=== PATIENT | male | born 1950 | race Caucasian/White ===

== ENCOUNTER 2018-10-21 20:57 | Inpatient (IN) | payer OTHER ==
[2018-10-21 21:29] LABS: PLATELET COUNT 291 10^3/uL (150-400)
[2018-10-21] MEDS ORDERED: NS 1,000 ML IV ONE (21:44)
[2018-10-21] MEDS ORDERED: LIDOCAINE 2% JELLY 20 ML (UROJECT) ONE (21:48)
[2018-10-21] MEDS ORDERED: BENZOCAINE UNIT DOSE SPRAY HURRICAINE MM ONE (22:17)
[2018-10-21] MEDS ORDERED: CEPACOL LOZENGE PO PRN (22:33)
--- NOTE | 2018-10-21 23:05 | GHP ---
[f rep st] PREOP HISTORY AND PHYSICAL DATE OF ADMISSION: 10/21/2018 REASON FOR EVALUATION: Postoperative abdominal pain. HISTORY OF PRESENT ILLNESS: 68-year-old male status post an uncomplicated laparoscopic ventral herniorrhaphy on October 14. He presents to the emergency room this evening with a multiple-day history of progressive abdominal distention with nausea, anorexia, diminished flatus with his last bowel movement being 2 days prior. No fevers or chills. Pain had been fairly controlled. One episode of emesis prior to ED arrival this evening. No prior history of similar complaints. PAST MEDICAL HISTORY: None. PAST SURGICAL HISTORY: Hemorrhoidectomy, bilateral inguinal hernia repair, vasectomy, ankle fracture ORIF with plate placement. HOME MEDICATIONS: Supplemental vitamins. ALLERGIES: No known drug allergies. SOCIAL HISTORY: No alcohol, no tobacco. PHYSICAL EXAM: VITAL SIGNS: Temperature 37.2, blood pressure 136/77, heart rate 69, respirations 20. GENERAL: The patient is alert, appropriate, comfortable. HEENT: Anicteric. NECK: No cervical lymphadenopathy. HEART: Regular. LUNGS: Clear. ABDOMEN: Markedly distended, soft. Appropriate incisional tenderness. No rebound. No guarding. No fluid wave. EXTREMITIES: Without edema. NEUROLOGIC: Alert and appropriate. SKIN: Without rashes. LABORATORY DATA: White count 4, hemoglobin 15, platelets 290. Electrolytes pending. Two-view KUB with markedly dilated small bowel loops with minimal colonic gas and marked gastric distention with air-fluid level. IMPRESSION: Postoperative ileus versus small-bowel obstruction. PLAN: Nasogastric tube placement was performed (1500cc gastrobilious fluid immediately on placement). Pending clinical course, consideration for Gastrografin small bowel follow-through versus a laparoscopic exploration may be entertained should conservative measures fail. Findings and recommendations were discussed with the patient. All questions were entertained. /[id number]/MODL MTDD
[2018-10-21] MEDS: D5W 1/2 NS W/ 20 KCl/L 1,000 ML IV SCH (23:32)
[2018-10-22] MEDS: KETOROLAC 15 MG/1 ML SDV IVP PRN ×2 (02:57→10:07)
--- NOTE | 2018-10-22 07:52 | PDMN ---
Medical Necessity Medical necessity: Pt meets IP criteria as of 10/21/2018 per and MCG M-210 ( Intestinal obstruction); est los > 2 mn for ongoing tx and management of SBO vs ileus s/p laparascopic ventral herniorrhaphy 1 week ago. Pt experiencing nausea , vomiting, abdominal pain, decreased flatus, and constipation; requiring NG tube and further workup.
[2018-10-22] MEDS: D5W 1/2 NS W/ 20 KCl/L 1,000 ML IV SCH ×2 (07:54→17:57)
--- NOTE | 2018-10-22 08:21 | SOAPPROG ---
SOAP Progress Note Assessment/Plan: Assessment:feeling better. one small flatus. less pain. no further nausea. avss. comfortable. abd less distended, nontender. NG gastric. KUB diffuse SB dilation. probable ileus rather than PSBO. cont NG/supportive care for today. Plan: 10/22/18 08:16 Objective: Vital Signs Temp Pulse Resp BP Pulse Ox 36.8 C 62 16 117/60 91 L 10/22/18 07:57 10/22/18 07:57 10/22/18 07:57 10/22/18 07:57 10/22/18 07:57 10/21/18 10/22/18 10/23/18 05:59 05:59 05:59 Intake Total 1000 679 Output Total 3850 150 Balance -2850 529 ICD10 Worksheet Patient Problems: Problems Problem Status Onset Ileus following gastrointestinal surgery Acute - ICD10 Problem Qualifiers (1) Ileus following gastrointestinal surgery
--- NOTE | 2018-10-22 10:02 | ASMTCMCOM ---
CM Note CM Note Notes: Chart reviewed for discharge planning purposes. 68 year old male admitted post ventral hernia repair with sbo vs ileus after laparoscopic surgery. No significant health history in chart. CM to follow for needs. Plan::Likely to discharge independently. Date Signed: 10/22/2018 10:01 AM Electronically Signed By:Iris Keith RN
[2018-10-22] MEDS: LORazepam 2 MG/ML INJ IVP PRN (21:57)
[2018-10-23] MEDS: D5W 1/2 NS W/ 20 KCl/L 1,000 ML IV SCH ×2 (04:09→16:00)
--- NOTE | 2018-10-23 12:32 | SOAPPROG ---
SOAP Progress Note Assessment/Plan: Assessment/Plan: Ileus post ventral hernia repir Admitted with afl on axr No leucocytosis NGT in place axr improved gas patter +flatus and small BM Abd soft less distended Inc c/d Improving picture small bowel series in am if needed. cont supportive care encourage ambulation/clears 10/23/18 12:30 Objective: Vital Signs Temp Pulse Resp BP Pulse Ox 36.6 C 73 14 130/68 H 94 10/23/18 11:07 10/23/18 11:07 10/23/18 11:07 10/23/18 11:07 10/23/18 11:07 10/22/18 10/23/18 10/24/18 05:59 05:59 05:59 Intake Total 9269 Output Total 2350 1600 900 Balance -2350 1329 -900 ICD10 Worksheet Patient Problems: Problems Problem Status Onset Ileus following gastrointestinal surgery Acute
[2018-10-23] MEDS: KETOROLAC 15 MG/1 ML SDV IVP PRN (18:52)
[2018-10-24] MEDS: D5W 1/2 NS W/ 20 KCl/L 1,000 ML IV SCH ×2 (02:01→19:44)
[2018-10-24] MEDS: KETOROLAC 15 MG/1 ML SDV IVP PRN ×2 (02:02→11:11)
--- NOTE | 2018-10-24 10:11 | SOAPPROG ---
SOAP Progress Note Assessment/Plan: Assessment/Plan: Ileus post ventral hernia repir Admitted with afl on axr No leucocytosis NGT in place axr improved gas patter +flatus and small BM More nauseated this morning Abd soft less distended Inc c/d More enteric fluid in NG aspirate small bowel series cont supportive care encourage ambulation/clears 10/23/18 12:30 10/24/18 10:10 Objective: Vital Signs Temp Pulse Resp BP Pulse Ox 36.9 C 52 L 16 103/44 L 93 10/24/18 07:40 10/24/18 07:40 10/24/18 07:40 10/24/18 07:40 10/24/18 07:40 10/23/18 10/24/18 10/25/18 05:59 05:59 05:59 Intake Total 2929 936 Output Total 1600 2100 Balance 1329 -1164 ICD10 Worksheet Patient Problems: Problems Problem Status Onset Ileus following gastrointestinal surgery Acute
[2018-10-24] MEDS: ONDANSETRON 4 MG/2 ML VIAL IVP PRN (15:45)
[2018-10-25] MEDS: KETOROLAC 15 MG/1 ML SDV IVP PRN ×4 (00:29→21:43)
--- NOTE | 2018-10-25 09:48 | SOAPPROG ---
SOAP Progress Note Assessment/Plan: Assessment/Plan: Ileus vs pSBO post ventral hernia repir Admitted with afl on axr No leucocytosis NGT in place axr improved gas patter +flatus and small BM More nauseated this morning Abd soft less distended Inc c/d More enteric fluid in NG aspirate small bowel series no contrast in colon after 5 hr recommend diag laparoscopy/adhesiolysis risks, benefits and alternatives outlined with questions answered npo 10/23/18 12:30 10/24/18 10:10 10/25/18 09:46 Objective: Vital Signs Temp Pulse Resp BP Pulse Ox 36.5 C 60 16 126/66 H 93 10/25/18 07:23 10/25/18 07:23 10/25/18 07:23 10/25/18 07:23 10/25/18 07:23 10/24/18 10/25/18 10/26/18 05:59 05:59 05:59 Intake Total 936 1517 Output Total 7508 8065 Htrtykk -2180 -4137 ICD10 Worksheet Patient Problems: Problems Problem Status Onset Ileus following gastrointestinal surgery Acute
[2018-10-25] MEDS ORDERED: LR 1,000 ML IV ONE (11:46)
--- NOTE | 2018-10-25 11:46 | ASMTCMCOM ---
CM Note CM Note Notes: Pt reports he anticipates no CM d/c needs. Pt will have transportation at d/c. Pt declines [employer] and [employer]. Anticipate pt will d/c when medically stable, no CM d/c needs identified. CM available for changes/needs. D/c plan: Independent Date Signed: 10/25/2018 11:45 AM Electronically Signed By:AUGUSTA Quiroz
[2018-10-25] MEDS ORDERED: LIDOCAINE 1% 300 MG/30 ML SDV ONE (11:48)
[2018-10-25] MEDS ORDERED: BUPIVACAINE 0.5% 30 ML SDV ONE (11:48)
--- NOTE | 2018-10-25 11:59 | PDANEPAE ---
ANE Past Medical History - Pulmonary History Hx Oxygen in Use at Home: No Hx Sleep Apnea: No Sleep Apnea Screening Result - Last Documented: Positive - Endocrine History Hx Diabetes: No ANE Review of Systems Review of Systems: ANE Patient History - Allergies Allergies/Adverse Reactions: No Known Allergies Allergy (Unverified 10/21/18 21:11) - Home Medications Home Medications: NK [No Known Home Meds] 10/21/18 [Last Taken Unknown] - NPO status NPO Since - Liquids (Date): 10/20/18 NPO Since - Solids (Date): 10/20/18 - Smoking Hx Smoking Status: Former smoker ANE Labs/Vital Signs - Labs Result Diagrams: 10/21/18 21:06 10/25/18 10:19 - Vital Signs Blood Pressure: 114/64 Heart Rate: 54 Respiratory Rate: 18 O2 Sat (%): 93 Height: 167.64 cm Weight: 66.224 kg ANE Physical Exam - Airway Mallampati Score: Class 2 - ASA Status ASA Status: II ANE Anesthesia Plan Anesthesia Plan: general endotracheal anesthesia
[2018-10-25] MEDS ORDERED: MIDAZOLAM 2 MG/2 ML VIAL ONE (12:04)
[2018-10-25] MEDS ORDERED: fentaNYL 100 MCG/2 ML INJ ONE ×3 (12:04→14:50)
[2018-10-25] MEDS ORDERED: PROPOFOL 200 MG/20 ML VIAL ONE (12:05)
[2018-10-25] MEDS ORDERED: ONDANSETRON 4 MG/2 ML VIAL ONE (12:12)
[2018-10-25] MEDS ORDERED: ROCURONIUM 50 MG/5 ML VIAL ONE (12:12)
[2018-10-25] MEDS ORDERED: ACETAMINOPHEN 500 MG TAB PO PRN (13:53)
[2018-10-25] MEDS ORDERED: LR 500 ML IV PRN (13:53)
[2018-10-25] MEDS ORDERED: NALOXONE HCL 0.4 MG/ML INJ IVP PRN (13:53)
--- NOTE | 2018-10-25 13:54 | POSTANESTH ---
Post Anesthetic Evaluation Cardiovascular Status: Normal, Stable Respiratory Status: Normal, Stable Level of Consciousness/Mental Status: Can Participate in Eval Pain Control: Adequate, Prn Tx Ordered Nausea/Vomiting Control: Adequate, Prn Tx Ordered Complications Possibly Related to Anesthesia: None Noted
[2018-10-25] MEDS ORDERED: KETOROLAC 15 MG/1 ML SDV ONE (14:11)
[2018-10-25] MEDS: fentaNYL 100 MCG/2 ML INJ IVP PRN ×3 (14:13→14:51)
--- NOTE | 2018-10-25 14:16 | POSTOPPROG ---
Post Op Note Date of Operation: 10/25/18 Surgeon: Morris Castrejon Partition Assembly Machine Operator: Bryon Smyth Anesthesiologist: Candie Anesthesia: GET(General Endotracheal) Pre-op Diagnosis: pSBO Post-op Diagnosis: same Procedure: Laparoscopic adhesiolysis, enterectomy Findings: stricture inflammed distal small bowel Inf/Abcess present in the surg proc area at time of surgery?: No EBL: Minimal Specimen(s): terminal ileum to path
[2018-10-25] MEDS: D5W 1/2 NS W/ 20 KCl/L 1,000 ML IV SCH (21:52)
[2018-10-26] MEDS: KETOROLAC 15 MG/1 ML SDV IVP PRN ×2 (03:44→14:38)
[2018-10-26] MEDS: D5W 1/2 NS W/ 20 KCl/L 1,000 ML IV SCH ×2 (08:06→17:47)
--- NOTE | 2018-10-26 16:59 | SOAPPROG ---
SOAP Progress Note Assessment/Plan: Assessment/Plan: POD#1 s/p lap adhesiolysis and enterectomy for distal sb inflammation and stenosis Less nauseated this morning Min NGT output Abd soft less distended Inc c/d Await return of bowel function path pending ngt clamped Cont IVF reassess in am d/c ng and adv diet when clinically appropriate 10/23/18 12:30 10/24/18 10:10 10/25/18 09:46 10/26/18 16:58 Objective: Vital Signs Temp Pulse Resp BP Pulse Ox 36.9 C 61 16 124/64 H 94 10/26/18 16:00 10/26/18 16:00 10/26/18 16:00 10/26/18 16:00 10/26/18 16:00 Laboratory Results 10/25/18 10:19 10/25/18 10/26/18 10/27/18 05:59 05:59 05:59 Intake Total 1517 750 Output Total 1227 1044 Balance -8062 -202 ICD10 Worksheet Patient Problems: Problems Problem Status Onset Ileus following gastrointestinal surgery Acute
[2018-10-27] MEDS: LORazepam 2 MG/ML INJ IVP PRN (05:54)
--- NOTE | 2018-10-27 13:38 | SOAPPROG ---
SOAP Progress Note Assessment/Plan: Assessment/Plan: POD#2 s/p lap adhesiolysis and enterectomy for distal sb inflammation and stenosis Not nauseated this morning NGT clamped overnight Abd soft less distended Inc c/d AXR shows contrast in distal colon Await return of bowel function path inflammation of smallbowel no crohn's/malignancy ngt removed Cont IVF reassess in am adv diet when clinically appropriate 10/23/18 12:30 10/24/18 10:10 10/25/18 09:46 10/26/18 16:58 10/27/18 13:36 Objective: Vital Signs Temp Pulse Resp BP Pulse Ox 36.8 C 61 16 121/73 H 95 10/27/18 11:45 10/27/18 11:45 10/27/18 11:45 10/27/18 11:45 10/27/18 11:45 Laboratory Results 10/25/18 10:19 10/26/18 10/27/18 10/28/18 05:59 05:59 05:59 Intake Total 750 1100 Output Total 1700 225 Balance -950 875 ICD10 Worksheet Patient Problems: Problems Problem Status Onset Ileus following gastrointestinal surgery Acute
[2018-10-27] MEDS: D5W 1/2 NS W/ 20 KCl/L 1,000 ML IV SCH ×2 (14:53→23:52)
--- NOTE | 2018-10-27 22:08 | SOAPPROG ---
SOAP Progress Note Assessment/Plan: Assessment: doing well. min po - min appetite. no nausea. no pain. avss. comfortable. path reviewed. cont supportive care/IVF until better po. all questions answered. Plan: 10/22/18 08:16 10/27/18 22:07 Objective: Vital Signs Temp Pulse Resp BP Pulse Ox 36.7 C 62 16 135/72 H 94 10/27/18 19:12 10/27/18 19:12 10/27/18 19:12 10/27/18 19:12 10/27/18 19:12 Laboratory Results 10/25/18 10:19 10/26/18 10/27/18 10/28/18 05:59 05:59 05:59 Intake Total 750 1100 2200 Output Total 1700 225 Balance -856 953 9249 ICD10 Worksheet Patient Problems: Problems Problem Status Onset Ileus following gastrointestinal surgery Acute - ICD10 Problem Qualifiers (1) Ileus following gastrointestinal surgery
[2018-10-28] MEDS: DICYCLOMINE 10 MG CAP PO SCH ×3 (10:50→22:10)
--- NOTE | 2018-10-28 14:19 | SOAPPROG ---
SOAP Progress Note Assessment/Plan: Assessment/Plan: POD#3 s/p lap adhesiolysis and enterectomy for distal sb inflammation and stenosis Not nauseated this morning NGT clamped overnight Abd softly distended Inc c/d AXR shows contrast in distal colon Await return of bowel function bentyl for spasm path inflammation of small bowel no crohn's/malignancy ngt removed Cont IVF reassess in am adv diet when clinically appropriate 10/23/18 12:30 10/24/18 10:10 10/25/18 09:46 10/26/18 16:58 10/27/18 13:36 10/28/18 14:17 Objective: Vital Signs Temp Pulse Resp BP Pulse Ox 36.8 C 56 L 16 104/60 95 10/28/18 11:35 10/28/18 11:35 10/28/18 11:35 10/28/18 11:35 10/28/18 11:35 Laboratory Results 10/25/18 10:19 10/27/18 10/28/18 10/29/18 05:59 05:59 05:59 Intake Total 1100 2200 Output Total 225 Balance 875 2200 ICD10 Worksheet Patient Problems: Problems Problem Status Onset Ileus following gastrointestinal surgery Acute
--- NOTE | 2018-10-28 15:58 | ASMTCMCOM ---
CM Note CM Note Notes: Spoke w/RN, pt continues to improve. Plan remains the same, will dc independent when medically stable. Pt declined [employer] and [employer]. CM available for changes. DC Plan: Independent Date Signed: 10/28/2018 03:57 PM Electronically Signed By:Bhumika Whitmore RN
[2018-10-29] MEDS: ONDANSETRON 4 MG/2 ML VIAL IVP PRN (05:07)
[2018-10-29] MEDS: DICYCLOMINE 10 MG CAP PO SCH ×4 (05:07→20:24)
--- NOTE | 2018-10-29 09:43 | SOAPPROG ---
SOAP Progress Note Assessment/Plan: Assessment/Plan: POD#4 s/p lap adhesiolysis and enterectomy for distal sb inflammation and stenosis Not nauseated this morning NGT out. multiple loose stool Abd soft non distended Inc c/d bentyl for spasm path inflammation of small bowel no crohn's/malignancy D/C IVF reg diet D/C home in 24-48 hr when clinically appropriate 10/23/18 12:30 10/24/18 10:10 10/25/18 09:46 10/26/18 16:58 10/27/18 13:36 10/28/18 14:17 10/29/18 09:42 10/29/18 09:43 Objective: Vital Signs Temp Pulse Resp BP Pulse Ox 36.5 C 53 L 14 87/46 L 92 10/29/18 07:52 10/29/18 07:52 10/29/18 07:52 10/29/18 07:52 10/29/18 07:52 Laboratory Results 10/25/18 10:19 10/28/18 10/29/18 10/30/18 05:59 05:59 05:59 Intake Total 2200 750 Balance 2200 750 ICD10 Worksheet Patient Problems: Problems Problem Status Onset Ileus following gastrointestinal surgery Acute
--- NOTE | 2018-10-29 13:23 | ASMTCMCOM ---
CM Note CM Note Notes: CM discussed with RN, plan continues to be discharge home independent, possibly tomorrow. CM to follow. D/C Plan: Independent. Date Signed: 10/29/2018 01:22 PM Electronically Signed By:Kamini Gaines
[2018-10-29] MEDS: IBUPROFEN 600 MG TAB PO PRN (14:38)
[2018-10-29] MEDS: HYDROCODONE/APAP 5/325 TAB PO PRN (16:51)
[2018-10-30] MEDS: DICYCLOMINE 10 MG CAP PO SCH ×5 (05:50→20:46)
--- NOTE | 2018-10-30 12:08 | SOAPPROG ---
SOAP Progress Note Assessment/Plan: Assessment/Plan: POD#5 s/p lap adhesiolysis and enterectomy for distal sb inflammation and stenosis Mildly nauseated this morning NGT out. multiple loose stool Minimal intake of clears Abd softly distended extremities no edema Inc c/d bentyl for spasm path inflammation of small bowel no crohn's/malignancy D/C IVF reg diet x-ray if no improvement in 24 hrs D/C home in 24-48 hr when clinically appropriate 10/23/18 12:30 10/24/18 10:10 10/25/18 09:46 10/26/18 16:58 10/27/18 13:36 10/28/18 14:17 10/29/18 09:42 10/29/18 09:43 10/30/18 12:07 Objective: Vital Signs Temp Pulse Resp BP Pulse Ox 36.4 C 68 16 123/66 H 93 10/30/18 11:33 10/30/18 11:33 10/30/18 11:33 10/30/18 11:33 10/30/18 11:33 Laboratory Results 10/25/18 10:19 10/29/18 10/30/18 10/31/18 05:59 05:59 05:59 Intake Total 750 760 Balance 750 760 ICD10 Worksheet Patient Problems: Problems Problem Status Onset Ileus following gastrointestinal surgery Acute
[2018-10-30] MEDS: ONDANSETRON 4 MG/2 ML VIAL IVP PRN (15:24)
[2018-10-30] MEDS ORDERED: PROMETHAZINE HCL 25 MG/ML INJ IVP PRN (20:00)
[2018-10-30] MEDS ORDERED: TEMAZEPAM 15 MG CAP PO ONE (20:01)
[2018-10-31] MEDS: DICYCLOMINE 10 MG CAP PO SCH ×4 (06:59→22:02)
[2018-10-31] MEDS ORDERED: METOCLOPRAMIDE 10 MG/2 ML VIAL IVP ONE (13:04)
--- NOTE | 2018-10-31 13:04 | SOAPPROG ---
SOAP Progress Note Assessment/Plan: Assessment/Plan: POD#6 s/p lap adhesiolysis and enterectomy for distal sb inflammation and stenosis Mildly nauseated yesterday Better this morning NGT out. multiple loose stool Minimal intake of clears Sleep aid with phenergan last evening slept for 11 hr Abd softly distended extremities no edema Inc c/d bentyl for spasm path inflammation of small bowel no crohn's/malignancy Reglan added (along with pheregan and restoril) reg diet x-ray if no improvement in 24 hrs D/C home in 24-48 hr when clinically appropriate 10/23/18 12:30 10/24/18 10:10 10/25/18 09:46 10/26/18 16:58 10/27/18 13:36 10/28/18 14:17 10/29/18 09:42 10/29/18 09:43 10/30/18 12:07 10/31/18 13:03 Objective: Vital Signs Temp Pulse Resp BP Pulse Ox 36.5 C 68 16 101/50 L 93 10/31/18 11:39 10/31/18 11:39 10/31/18 11:39 10/31/18 11:39 10/31/18 11:39 Laboratory Results 10/25/18 10:19 10/30/18 10/31/18 11/01/18 05:59 05:59 05:59 Intake Total 760 300 Balance 760 300 ICD10 Worksheet Patient Problems: Problems Problem Status Onset Ileus following gastrointestinal surgery Acute
[2018-10-31] MEDS ORDERED: TEMAZEPAM 15 MG CAP PO PRN (13:05)
[2018-10-31] MEDS ORDERED: METOCLOPRAMIDE 10 MG/2 ML VIAL IVP SCH (18:00)
[2018-10-31] MEDS ORDERED: METOCLOPRAMIDE 5 MG TAB PO PRN (19:13)
[2018-11-01] MEDS: HYDROCODONE/APAP 5/325 TAB PO PRN ×2 (00:47→22:25)
[2018-11-01] MEDS: DICYCLOMINE 10 MG CAP PO SCH ×4 (08:43→20:43)
--- NOTE | 2018-11-01 10:25 | ASMTCMCOM ---
CM Note CM Note Notes: Reviewed chart and spoke w/RN. Pt up and indepedent in room, anticipate will dc home independent when medically stable. CM available should his needs change. DC Plan: Independent Date Signed: 11/01/2018 10:24 AM Electronically Signed By:Bhumika Whitmore RN
--- NOTE | 2018-11-01 13:56 | SOAPPROG ---
SOAP Progress Note Assessment/Plan: Assessment/Plan: POD#7 s/p lap adhesiolysis and enterectomy for distal sb inflammation and stenosis Mildly nauseated yesterday Better this morning NGT out. multiple loose stool Minimal intake of clears Sleep aid with phenergan last evening slept for 11 hr Abd softly distended extremities no edema Inc min drainage bentyl for spasm path inflammation of small bowel no crohn's/malignancy Reglan added (along with pheregan and restoril) reg diet x-ray if no improvement in 24 hrs D/C home in 24-48 hr when clinically appropriate 10/23/18 12:30 10/24/18 10:10 10/25/18 09:46 10/26/18 16:58 10/27/18 13:36 10/28/18 14:17 10/29/18 09:42 10/29/18 09:43 10/30/18 12:07 10/31/18 13:03 11/01/18 13:55 11/01/18 13:55 Objective: Vital Signs Temp Pulse Resp BP Pulse Ox 36.6 C 61 16 102/61 94 11/01/18 08:00 11/01/18 08:00 11/01/18 08:00 11/01/18 08:00 11/01/18 08:00 Laboratory Results 10/25/18 10:19 10/31/18 11/01/18 11/02/18 05:59 05:59 05:59 Intake Total 300 120 Balance 300 120 ICD10 Worksheet Patient Problems: Problems Problem Status Onset Ileus following gastrointestinal surgery Acute
[2018-11-02] MEDS: DICYCLOMINE 10 MG CAP PO SCH ×4 (05:30→20:25)
--- NOTE | 2018-11-02 11:35 | SOAPPROG ---
SOAP Progress Note Assessment/Plan: Assessment/Plan: POD #7 s/p lap adhesiolysis and enterectomy for small bowel inflammation/ stricture. Overall doing much better. Only taking [place] prn pain. Umbilical incision redressed this morning. Anticipate discharge this evening or tomorrow if he continues to improve. Patient case discussed with Dr. Castrejon. 11/02/18 11:37 Subjective: Abdominal pain and cramping improved this am. Denies nausea. Tolerating regular diet and fluids well. Patient states he had formed BM this morning. Having flatus. Objective: Vital Signs Temp Pulse Resp BP Pulse Ox 36.4 C 67 14 90/47 L 95 11/02/18 07:57 11/02/18 07:57 11/02/18 07:57 11/02/18 07:57 11/02/18 07:57 Laboratory Results 10/25/18 10:19 11/01/18 11/02/18 11/03/18 05:59 05:59 05:59 Intake Total 120 120 Balance 120 120 Physical Exam: Gen: A&O x3, comfortable, lying in bed HEENT: anicteric Abdomen: soft, mild distention, minimal diffuse tenderness. No rebound or guarding. Incisions healing well, umbilical drainage Extremities: unremarkable ICD10 Worksheet Patient Problems: Problems Problem Status Onset Ileus following gastrointestinal surgery Acute
[2018-11-02] MEDS: HYDROCODONE/APAP 5/325 TAB PO PRN (22:12)
[2018-11-03] MEDS: IBUPROFEN 600 MG TAB PO PRN (03:12)
[2018-11-03] MEDS: DICYCLOMINE 10 MG CAP PO SCH ×2 (05:05→12:39)
[2018-11-03 09:37] VITALS: BP 109/61
--- NOTE | 2018-11-03 12:32 | ASMTLACE ---
LACE Length of stay for Answers: 7-13 days current admission Acuity / Level of Answers: Yes Care: Did the patient have an inpatient admission? Score: 8 Date Signed: 11/03/2018 12:29 PM Electronically Signed By:Bhumika Whitmore RN
--- NOTE | 2018-11-14 22:20 | GDS ---
[f rep st] DISCHARGE SUMMARY PRINCIPAL PROCEDURE: Diagnostic laparoscopy with small bowel obstruction. PRINCIPAL DIAGNOSTIC STUDIES: Include small bowel follow-through on 10/24/2018, demonstrating persis tent small bowel obstruction, and surgery was on 10/25/2018. The patient had a postoperative ileus w hich was treated conservatively. The patient advanced his diet and activity before being discharged. HISTORY/HOSPITAL COURSE: The patient had had surgery, a ventral hernia repair done 2 weeks prior to arrival. The patient came in with dilated loops of bowel and vomiting consistent with small bowel ob struction. He underwent an NG-tube decompression, which did not cause improvement of symptoms after 3 days. The patient had diagnostic study performed which demonstrated persistent ileus/small bowel o bstruction. He was taken to the operating room, underwent laparoscopy and enterectomy, and he was fo und to have normal small bowel pathology, although it was inflamed. The patient was advanced in his diet and activity and, otherwise, progressed to discharge without any other complications. PAST MEDICAL HISTORY: Significant for previous hernia repairs in the past, hemorrhoidectomy, vasecto my, bilateral inguinal hernia repairs, and ORIF of his ankle. HOME MEDICATIONS: He has no home medication. ALLERGIES: No known drug allergies. FAMILY HISTORY: Noncontributory. SOCIAL HISTORY: Denies alcohol or drug use. DISCHARGE INSTRUCTIONS: The patient is discharged to home with [place] for pain control, Bentyl for an tispasmodic as needed, and Restoril for sleep. The patient will follow up in the office in approxima tely 1-2 weeks. All questions were addressed prior to discharge. /[id number]/MODL
--- NOTE | 2018-11-14 23:11 | GOP ---
[f rep st] OPERATIVE REPORT DATE OF OPERATION: 10/25/2018 SURGEON: Morris Castrejon MD PRODUCT DEVELOPMENT SCIENTIST: Jarrod Smyth MD. ANESTHESIOLOGIST: Aaron Schreiber MD. PREOPERATIVE DIAGNOSIS: Small bowel obstruction. POSTOPERATIVE DIAGNOSIS: Small bowel obstruction. PROCEDURE PERFORMED: Diagnostic laparoscopy with antrectomy. FINDINGS: SPECIMENS: Terminal ileum to permanent pathology. INDICATIONS: This is a 68-year-old gentleman who had undergone previous ventral incisional hernia re pair approximately 2-3 weeks prior. He presented with persistent small-bowel obstruction based on im aging studies from the day before. The patient elected for laparoscopic re-evaluation, lysis of adhe sions, possible small bowel resection. DESCRIPTION OF PROCEDURE: The patient was brought to the operating room after induction of endotrach eal anesthesia in a supine position and was prepped with chlorhexidine and draped sterilely. Time-ou t procedure was performed according to institutional standards. Local anesthetic was infused in skin and subcutaneous tissues of the trocar sites, and lateral trocar sites on the left were used for opt ical trocar placement and for placing a port for diagnosis of his issues. He was found to have some filmy adhesions as expected to the anterior abdominal wall. Minimal interloop adhesions. No free fl uid. The bowel was dilated proximally and decompressed distally. No true transition point was noted . The small bowel was kinked around the terminal ileum and very inflamed. It did not have a creepin g fat or any signs of inflammatory bowel disease, but clearly inflammation was present. This appeare d to be the area of obstruction, and due to the abnormality of the bowel, it was elected to perform a localized small bowel resection. The incisional choice was in the lower midline. Vertical incision was made deep with electrocautery, and the small bowel was exteriorized. A [id number] functional end-to-end anastomosis was then created after resecting the bowel using a ESTHER-75 stapler. The mesent ida was closed using 3-0 Vicryl, and the bowel was returned to the abdomen. The fascia was reapproxi mated using PDS, and the skin was closed using 4-0 Monocryl. The abdomen was reinflated and inspecte d. The bowel was in normal anatomic position. There did not appear to be any other pathology. Prev ious umbilical inguinal hernia were intact as well as the ventral incisional hernia repair . The abdomen was deflated. Working trocars were then removed, and the 5 mm ports were closed with 4-0 Monocryl. Dermabond was applied. The patient was awakened, extubated, and taken to [facility] in stable condition. No immediate complications. /[id number]/MODL
== END 2018-11-03 15:11 | disposition home or self-care (01) | DRG 330 ==
LOC: OBSVTOIN 22:34 → F3N 22:58 → F3E 10-23 16:20
PROVIDERS: ADMIT Surgery; ATTEND Surgery
PROC: 0DJD4ZZ Inspection of Lower Intestinal Tract, Percutaneous Endoscopic Approach (ICD-10-PCS; principal; 2018-10-25 12:15)
PROC: 0DT80ZZ Resection of Small Intestine, Open Approach (ICD-10-PCS; principal; 2018-10-25 12:15)
DX: K91.31 Postprocedural partial intestinal obstruction (principal); K91.89 Other postprocedural complications and disorders of digestive system; Z53.31 Laparoscopic surgical procedure converted to open procedure; Z87.891 Personal history of nicotine dependence
CPT/HCPCS: J1885; J2060; J2250; J2270; J2405; J2550; J2704; J2765; J3010